=== PATIENT | male | born 1950 | race Hispanic/Latino ===

== ENCOUNTER 2024-01-25 07:24 | Emergency (ER) | payer OTHER ==
[2024-01-25] MEDS ORDERED: NA CHLORIDE 0.9% 500 ML ONE (07:33)
[2024-01-25] MEDS ORDERED: NOREPINEPHRINE BITARTRATE/D5W 4 MG/250 ML KIT IV ONE (08:01)
[2024-01-25] MEDS ORDERED: PANTOPRAZOLE 40 MG INJ ONE (08:01)
[2024-01-25] MEDS ORDERED: ONDANSETRON 4 MG/2 ML VIAL ONE (08:01)
[2024-01-25 08:02] LABS: Absolute Basophils 0.1 K/uL (0-0.5); Absolute Eosinophils 0.3 K/uL (0-0.5); Absolute Lymphocytes (CBC) 3.2 K/uL (0.7-4.9); Absolute Monocytes 0.5 K/uL (0.1-1.3); Absolute Neutrophil 7.1 K/uL (1.8-8.0); Basophils % 0.9 % (0-1.3); Eosinophils % 2.5 % (0-4.4); Hematocrit 17.3 % (39.6-49.0); Lymphocytes % 28.4 % (15.3-44.8); MCH 30.3 pg (27.0-35.0); MCHC 31.7 g/dL (32.0-36.0); MCV 95.6 fL (80-100); MPV 7.6 fL (7.6-11.3); Monocytes % 4.3 % (3.3-12.3); Neutrophils % 63.9 % (41.7-73.7); Platelets 323 thou/uL (152-406); RBC Red Blood Cell Count 1.81 M/uL (4.33-5.43); Red Cell Distribution Width 19.1 % (12.1-15.2)
--- NOTE | 2024-01-25 08:03 | ER ---
Nurse's Notes [facility] Name: Carson Boyd Age: 73 yrs Sex: Male : 1950 Arrival Date: 01/25/2024 Time: 07:24 Bed 16 Private MD: Diagnosis: Hypotension, unspecified;GI Bleed/ Gastrointestinal hemorrhage, unspecified;Dependence on renal dialysis-MWF;Vomiting;Weakness Presentation: 01/24 07:39 Chief complaint: EMS states: EMS called for N/V and "possible surgical complications", ph pt was flown to [place] last week for a GI bleed, BP low at 70s/50s, HR 120s, hx of dialysis M,W,F. Coronavirus screen: Vaccine status: Patient reports receiving the 2nd dose of the covid vaccine. Ebola Screen: No symptoms or risks identified at this time. Initial Sepsis Screen: Does the patient meet any 2 criteria? No. Patient's initial sepsis screen is negative. Does the patient have a suspected source of infection? No. Patient's initial sepsis screen is negative. Risk Assessment: Do you want to hurt yourself or someone else? Patient reports no desire to harm self or others. Onset of symptoms was January 25, 2024. 07:39 Acuity: [place] 1 07:39 Method Of Arrival: EMS: [facility] Triage Assessment: 07:30 General: Appears in no apparent distress. Behavior is calm, cooperative. Pain: Complains of pain in abdomen. Neuro: Level of Consciousness is awake, alert, obeys commands, Oriented to person, place, time, situation. Cardiovascular: Capillary refill < 3 seconds in bilateral fingers Patient's skin is warm and dry. Rhythm is sinus tachycardia. Cardiovascular: Dialysis shunt: in the dorsal aspect of left forearm, with palpable thrill, with auscultated bruit, with no erythema, with no edema, no bleeding noted. Cardiovascular: Dialysis shunt: in the right clavicle. Cardiovascular: Edema is 1+ to left midcalf, left ankle, right midcalf and right ankle. Respiratory: Airway is patent Respiratory effort is even, unlabored. GI: Reports nausea, vomiting, Patient currently denies bloody stool. Derm: Skin is pale, Skin temperature is cool. Historical: - Allergies: 10:06 No Known Allergies; ph - PMHx: 10:06 Hypercholesterolemia; Hypertensive disorder; Gout; Dialysis M,W,F; ph - Immunization history:: Adult Immunizations unknown, Adult Immunizations unknown. - Infectious Disease History:: Denies. Denies. - Family history:: not pertinent. - Social history:: Smoking status: Patient denies any tobacco usage or history of. Smoking status: Patient denies any tobacco usage or history of. Screenin:02 [facility] ED Fall Risk Assessment (Adult) History of falling in the last 3 months, ph including since admission No falls in past 3 months (0 pts) Confusion or Disorientation No (0 pts) Intoxicated or Sedated No (0 pts) Impaired Gait Yes (1 pt) Mobility Assist Device Used Yes (1 pt) Altered Elimination No (0 pt) Score/Fall Risk Level 3 or more points = High Risk Oriented to surroundings, Maintained a safe environment, Hourly rounding (assess needs \\T\\ fall precautionary measures) done, Used ambulatory aids as needed (educated on \\T\\ assisted with). Abuse screen: Denies threats or abuse. Denies injuries from another. Nutritional screening: No deficits noted. Tuberculosis screening: No symptoms or risk factors identified. Assessment: 08:00 General: SEE TRIAGE ASSESSMENT. ph 09:00 Reassessment: Patient appears in no apparent distress at this time. Patient and/or ph family updated on plan of care and expected duration. Pain level reassessed. Patient is alert, oriented x 3, equal unlabored respirations, skin warm/dry/pink. 09:50 Reassessment: Life Flight at bedside, pt flown to [facility] w/ PRBCs and FFP ph transfusing. 09:55 Reassessment: Report called to Jones RN at [facility] GI ICU. ph Vital Signs: 07:38 BP 75 / 53; Pulse 114; Resp 18; Temp 97; Pulse Ox 95% on R/A; Weight 93.44 kg; Height 5 ph ft. 11 in. ; 08:21 BP 89 / 50; Pulse 111; Resp 18; Pulse Ox 96% on R/A; ph 08:41 BP 96 / 51; Pulse 101; Resp 23; Pulse Ox 100% on R/A; ph 09:02 BP 109 / 57; Pulse 97; Resp 18; Temp 96.8(TE); Pulse Ox 100% ; ph 09:15 BP 112 / 62; Pulse 100; Resp 22; Temp 97; Pulse Ox 98% on R/A; ph 09:30 BP 77 / 55; Pulse 106; Resp 18; Pulse Ox 100% on R/A; ph 09:45 BP 96 / 52; Pulse 103; Resp 21; Temp 96.6; Pulse Ox 100% on R/A; ph 07:38 Body Mass Index 28.73 (93.44 kg, 180.34 cm) ph Vitals: 08:21 Cardiac Rhythm Assessment Sinus tach. ph ED Course: 07:25 Inserted saline lock: 18 gauge in left EJ, using aseptic technique. ,using aseptic ph technique. per Dr Sutton Blood collected. Flushed with 10 mL NS. 07:28 Patient arrived in ED. ph 07:32 Deon Sutton MD is Attending Physician. emmy 07:37 Irma Patino, RN is Primary Nurse. ph 07:40 Triage completed. ph 08:07 XRAY Chest (1 view) In Process Unspecified. EDMS 08:20 Troponin HS Sent. ph 08:20 Accessed [place] cath. using per hospital protocol. Good blood return. Flushes easily. ph 08:30 Consent for blood and/or blood product transfusion explained by staff, explained by ph physician, signed by patient. 08:30 Patient has correct armband on for positive identification. Provided Education on: ph Estimated time for test results. 08:56 [facility] at capacity, asked about [facility]. bc6 09:05 [facility]. bc6 09:06 Arm band placed on. ph 09:06 initiated transfer with Marco at [facility] transfer [place]. bc6 09:10 spoke with andie at [facility] transfer center to initiate. bc6 09:21 doc to doc with [facility]. bc6 09:30 received acceptance from andie with [facility] for bed 8A 813. bc6 09:47 life flight here. bc6 10:08 No provider procedures requiring assistance completed. Patient transferred, IV remains ph in place. Administered Medications: 08:19 Drug: Norepinephrine IV 0.1 mcg/kg/min IV at calculated rate See Administration ph Instructions; (Standard concentration 4 mg / 250 mL D5W); Recommended max rate 3 mcg/kg/min; Titrate 0.05 mcg/kg/min as often as every 5 minutes to achieve goal (see titration policy); Goal parameter MAP greater than 65 mmHg. {Note: given via Michi cath.} Route: IV; Rate: calculated rate; Site: Other; 09:50 Follow up: Response: No adverse reaction; IV Status: Infusion continued upon transfer ph 08:20 Drug: Pantoprazole IVP 80 mg IVP once Route: IVP; Site: left jugular; ph 10:12 Follow up: Response: No adverse reaction ph 09:32 Not Given (Other Intervention Used): ns 0.9% 500 ml IV at bolus once; to be given as a ph bolus over 30 minutes 09:32 Not Given (Other Intervention Used): ns 0.9% 500 ml 500 ml IV at 75 ml/hr once; to be ph given as a bolus over 30 minutes 09:43 Drug: Phytonadione Sub-Q 10 mg Sub-Q once Route: Sub-Q; Site: left lower abdomen; ap3 10:11 Follow up: Response: No adverse reaction ph 10:11 Not Given (Patient Refused): ondansetron 4 mg IVP once; over 2 minutes ph 10:12 Not Given (pt transferred before receiving from [facility]): pantoprazole8 mg/hr IV at ph 25 ml/hr continuous; (Standard dilution is 80 mg in 250 mL NS) Medication: 08:50 Blood products: PRBCs X 1 unit given. ph 09:25 Blood products: FFP X 1 unit given. ph 10:07 VIS not applicable for this client. ph Outcome: 08:03 ER care complete, transfer ordered by . emmy 10:[address] [facility], ph 10:09 Condition: stable 10:09 Instructed on the need for transfer, 10:12 Patient left the ED. ph Signatures: Dispatcher [employer] EDDeon Chavez MD MD cha Hall, Patricia RN RN ph Carly Dhillon RN RN ap3 Beti Haskins 6 Corrections: (The following items were deleted from the chart) 10:06 09:05 General: SEE TRIAGE ASSESSMENT. ph ph
--- NOTE | 2024-01-25 08:03 | EDPHYS ---
Physician Documentation [facility] Name: Carson Boyd Age: 73 yrs Sex: Male : 1950 Arrival Date: 01/25/2024 Time: 07:24 Bed 16 Private MD: ED Physician Deon Sutton HPI: 01/24 07:55 This 73 yrs old Male presents to ER via EMS with complaints of emmy Nausea/Vomiting, Blood Pressure Problem. 07:55 The patient presents to the emergency department with nausea, vomiting, that is emmy intermittent. Onset: The symptoms/episode began/occurred 1 day(s) ago. Possible causes: gi bleed. Historical: - Allergies: 10:06 No Known Allergies; ph - PMHx: 10:06 Hypercholesterolemia; Hypertensive disorder; Gout; Dialysis M,W,F; ph - Immunization history:: Adult Immunizations unknown, Adult Immunizations unknown. - Infectious Disease History:: Denies. Denies. - Family history:: not pertinent. - Social history:: Smoking status: Patient denies any tobacco usage or history of. Smoking status: Patient denies any tobacco usage or history of. ROS: 07:55 Constitutional: Negative for fever, chills, and weight loss, Eyes: Negative for injury, emmy pain, redness, and discharge, ENT: Negative for injury, pain, and discharge, Neck: Negative for injury, pain, and swelling, Respiratory: Negative for shortness of breath, cough, wheezing, and pleuritic chest pain, Back: Negative for injury and pain, : Negative for injury, bleeding, discharge, and swelling, MS/Extremity: Negative for injury and deformity, Neuro: Negative for headache, weakness, numbness, tingling, and seizure, Psych: Negative for depression, anxiety, suicide ideation, homicidal ideation, and hallucinations, Allergy/Immunology: Negative for hives, rash, and allergies, Endocrine: Negative for neck swelling, polydipsia, polyuria, polyphagia, and marked weight changes, Hematologic/Lymphatic: Negative for swollen nodes, abnormal bleeding, and unusual bruising, 07:55 Cardiovascular: Positive for palpitations, 07:55 Respiratory: Positive for cough, shortness of breath, at rest. 07:55 Abdomen/GI: Positive for nausea and vomiting, abdominal cramps, black/tarry stool, 07:55 Skin: Positive for pallor, Exam: 07:55 Head/Face: Normocephalic, atraumatic. Eyes: Pupils equal round and reactive to light, emmy extra-ocular motions intact. Lids and lashes normal. Conjunctiva and sclera are non-icteric and not injected. Cornea within normal limits. Periorbital areas with no swelling, redness, or edema. ENT: Nares patent. No nasal discharge, no septal abnormalities noted. Tympanic membranes are normal and external auditory canals are clear. Oropharynx with no redness, swelling, or masses, exudates, or evidence of obstruction, uvula midline. Mucous membranes moist. Neck: Trachea midline, no thyromegaly or masses palpated, and no cervical lymphadenopathy. Supple, full range of motion without nuchal rigidity, or vertebral point tenderness. No Meningismus. Chest/axilla: Normal chest wall appearance and motion. Nontender with no deformity. No lesions are appreciated. Respiratory: Lungs have equal breath sounds bilaterally, clear to auscultation and percussion. No rales, rhonchi or wheezes noted. No increased work of breathing, no retractions or nasal flaring. Back: No spinal tenderness. No costovertebral tenderness. Full range of motion. Male : Normal genitalia with no discharge or lesions. Skin: Warm, dry with normal turgor. Normal color with no rashes, no lesions, and no evidence of cellulitis. MS/ Extremity: Pulses equal, no cyanosis. Neurovascular intact. Full, normal range of motion., bilateral aka Psych: Awake, alert, with orientation to person, place and time. Behavior, mood, and affect are within normal limits. 07:55 Constitutional: The patient appears in obvious distress, mildly distressed, 07:55 Cardiovascular: Rate: tachycardic, actual rate is 118 bpm, Rhythm: regular, Pulses: Pulses are 3+ in bilateral radial, brachial, femoral, popliteal, posterior tibial and and dorsalis pedis arteries.. Heart sounds: normal, Edema: 1+ edema to level of left midcalf and right midcalf, JVD: is noted bilaterally, to 2 cm, 07:55 ECG was reviewed by the Attending Physician. Vital Signs: 07:38 BP 75 / 53; Pulse 114; Resp 18; Temp 97; Pulse Ox 95% on R/A; Weight 93.44 kg; Height 5 ph ft. 11 in. ; 08:21 BP 89 / 50; Pulse 111; Resp 18; Pulse Ox 96% on R/A; ph 08:41 BP 96 / 51; Pulse 101; Resp 23; Pulse Ox 100% on R/A; ph 09:02 BP 109 / 57; Pulse 97; Resp 18; Temp 96.8(TE); Pulse Ox 100% ; ph 09:15 BP 112 / 62; Pulse 100; Resp 22; Temp 97; Pulse Ox 98% on R/A; ph 09:30 BP 77 / 55; Pulse 106; Resp 18; Pulse Ox 100% on R/A; ph 09:45 BP 96 / 52; Pulse 103; Resp 21; Temp 96.6; Pulse Ox 100% on R/A; ph 07:38 Body Mass Index 28.73 (93.44 kg, 180.34 cm) ph Procedures: 07:59 Peripheral line: by aseptic technique a peripheral line was placed in the left external emmy jugular vein. MDM: 07:33 Medical Screening Exam initiated emmy 08:00 Differential diagnosis: Nonspecific abd pain, gastritis, pancreatitis, viral emmy gastroenteritis, gastroenteritis, gastritis, hemorrhagic shock, varices. Differential Diagnosis altered mental status, flu. Data reviewed: vital signs, nurses notes, lab test result(s), EKG, radiologic studies, plain films. Consideration of Admission/Observation Escalation of care including admission/observation considered. I considered the following discharge prescriptions or medication management in the emergency department Medications were administered in the Emergency Department. See MAR. Independent interpretation of the following test(s) in the Emergency Department EKG: See my EKG interpretation above. Test considered but Not performed: CT: no ct abd pel. Historians other than the Patient: EMS: ems well informed. Care significantly affected by the following chronic conditions: Diabetes, Hypertension, Obesity, upper gi bleed. Counseling: I had a detailed discussion with the patient and/or guardian regarding the historical points, exam findings, and any diagnostic results supporting the discharge/admit diagnosis, lab results, radiology results, the need to transfer to another facility, for higher level of care, [facility] does not immediately have the required specialist. 01/24 07:37 Order name: Type And Screen [facility] 01/24 07:37 Order name: Basic Metabolic Panel; Complete Time: 08:45 [facility] 01/24 07:37 Order name: CBC with Diff; Complete Time: 08:45 [facility] 01/24 07:37 Order name: LFT's; Complete Time: 08:45 [facility] 01/24 07:37 Order name: Magnesium; Complete Time: 08:45 [facility] 01/24 07:37 Order name: NT PRO-BNP; Complete Time: 08:45 [facility] 01/24 07:37 Order name: PT-INR; Complete Time: 08:06 [facility] 01/24 07:37 Order name: Troponin HS; Complete Time: 08:45 [facility] 01/24 07:37 Order name: Lipase; Complete Time: 08:45 [facility] 01/24 08:00 Order name: Packed RBC Leukored [facility] 01/24 08:14 Order name: Fresh Frozen Plasma [facility] 01/24 08:54 Order name: ABO/RH no charge; Complete Time: 09:19 [facility] 01/24 07:37 Order name: XRAY Chest (1 view) [facility] 01/24 07:37 Order name: Cardiac monitoring; Complete Time: 08:20 [facility] 01/24 07:37 Order name: EKG - Nurse/Tech; Complete Time: 08:20 [facility] 01/24 07:37 Order name: IV Saline Lock; Complete Time: 08:20 [facility] 01/24 07:37 Order name: Labs collected and sent; Complete Time: 08:20 [facility] 01/24 07:37 Order name: O2 Per Protocol; Complete Time: 08:20 [facility] 01/24 07:37 Order name: O2 Sat Monitoring; Complete Time: 08:20 [facility] 01/24 07:37 Order name: Misc. Order: access michi; Complete Time: 08:20 [facility] 01/24 07:37 Order name: Misc. Order: ej; Complete Time: 08:20 [facility] 01/24 07:37 Order name: Transfuse; Complete Time: 09:05 [facility] 01/24 08:45 Order name: NPO; Complete Time: 09:05 [facility] EC:55 Rate is 112 beats/min. Rhythm is regular. QRS [place] is Normal. DC interval is normal. emmy QRS interval is normal. QT interval is normal. No Q waves. T waves are Normal. ST Segment is depressed in leads I, II, III, aVL, aVF, V4, V5, V6. Clinical impression: NSR w/ Non-specific ST/T Changes. Interpreted by me. Reviewed by me. Administered Medications: 08:19 Drug: Norepinephrine IV 0.1 mcg/kg/min IV at calculated rate See Administration ph Instructions; (Standard concentration 4 mg / 250 mL D5W); Recommended max rate 3 mcg/kg/min; Titrate 0.05 mcg/kg/min as often as every 5 minutes to achieve goal (see titration policy); Goal parameter MAP greater than 65 mmHg. {Note: given via Michi cath.} Route: IV; Rate: calculated rate; Site: Other; 09:50 Follow up: Response: No adverse reaction; IV Status: Infusion continued upon transfer ph 08:20 Drug: Pantoprazole IVP 80 mg IVP once Route: IVP; Site: left jugular; ph 10:12 Follow up: Response: No adverse reaction ph 09:32 Not Given (Other Intervention Used): ns 0.9% 500 ml IV at bolus once; to be given as a ph bolus over 30 minutes 09:32 Not Given (Other Intervention Used): ns 0.9% 500 ml 500 ml IV at 75 ml/hr once; to be ph given as a bolus over 30 minutes 09:43 Drug: Phytonadione Sub-Q 10 mg Sub-Q once Route: Sub-Q; Site: left lower abdomen; ap3 10:11 Follow up: Response: No adverse reaction ph 10:11 Not Given (Patient Refused): ondansetron 4 mg IVP once; over 2 minutes ph 10:12 Not Given (pt transferred before receiving from [facility]): pantoprazole8 mg/hr IV at ph 25 ml/hr continuous; (Standard dilution is 80 mg in 250 mL NS) Disposition Summary: 01/25/24 08:03 Transfer Ordered Notes: Transfer Location: [facility] emmy Reason: Higher level of care memy Condition: Serious emmy Problem: an ongoing problem emmy Symptoms: have worsened emmy Accepting Physician: to [facility](01/25/24 10:12) ph Diagnosis - Hypotension, unspecified emmy - GI Bleed/ Gastrointestinal hemorrhage, unspecified emmy - Dependence on renal dialysis - MWF emmy - Vomiting emmy - Weakness emmy Forms: - Medication Reconciliation Form emmy - SBAR form emmy Signatures: Dispatcher [employer] Deon Bowie MD MD cha Hall, Patricia, RN RN ph Prokisch, Carly, RN RN ap3 Corrections: (The following items were deleted from the chart) 07:37 07:37 BASIC METABOLIC PANEL+C.LAB.BRZ ordered. EDMS EDMS 07:37 07:37 CBC+H.LAB.BRZ ordered. EDMS EDMS 07:37 07:37 HEPATIC FUNCTION+C.LAB.BRZ ordered. EDMS EDMS 07:37 07:37 MAGNESIUM+C.LAB.BRZ ordered. EDMS EDMS 07:37 07:37 PROBNP+C.LAB.BRZ ordered. EDMS EDMS 07:37 07:37 PROTIME (+INR)+COAG.LAB.BRZ ordered. EDMS EDMS 07:37 07:37 Troponin High Sensitivity+C.LAB.BRZ ordered. EDMS EDMS 07:37 07:37 LIPASE+C.LAB.BRZ ordered. EDMS EDMS 07:37 07:37 TYPE AND SCREEN+BB.LAB.BRZ ordered. EDMS EDMS 07:37 07:37 Chest Single View+RAD.RAD.BRZ ordered. EDMS EDMS 10:12 08:03 [place] [facility]
[2024-01-25 08:05] LABS: Protime INR 1.17
[2024-01-25] MEDS ORDERED: NA CHLORIDE 0.9% 250 ML ONE (08:05)
[2024-01-25 08:09] LABS: Hemoglobin 5.5 g/dL (13.6-17.9)
[2024-01-25 08:24] LABS: Albumin 1.7 g/dL (3.4-5.0); Albumin/Globulin Ratio 0.6 (1.1-1.8); Alkaline Phosphatase 57 U/L (45-117); Anion Gap 11.3 mEq/L (5.0-15.0); BUN Blood Urea Nitrogen 20 mg/dL (7-18); Bicarbonate 24 mEq/L (21-32); Bilirubin Total 0.3 mg/dL (0.2-1.0); Globulin 2.9 g/dL (2.3-3.5); Glomerular Filtration Rate 14 ml/min (=/>90); Glucose Level 124 mg/dL (74-106); Lipase 20 U/L (13-75); Magnesium 1.8 mg/dL (1.6-2.4); NT PRO-BNP 802 pg/mL (<125); Potassium 3.3 mEq/L (3.5-5.1); Protein, Total 4.6 g/dL (6.4-8.2); Sodium Level 142 mEq/L (136-145); Troponin High Sensitivity 13.5 pg/mL (<58.9)
[2024-01-25 08:28] LABS: ALT/SGPT < 14 U/L (16-61); AST/SGOT < 10 U/L (15-37); Bilirubin Direct < 0.2 mg/dL (0-0.2); Bilirubin Indirect, Calculated 0.1 mg/dL (0.2-0.8)
--- NOTE | 2024-01-25 09:21 | RAD REPORT ---
EXAMINATION: ONE VIEW CHEST XR CLINICAL INDICATION: Male, 73 years old.,SOB TECHNIQUE: Frontal chest projection is submitted. Examination is limited by patient positioning and t echnique. COMPARISON: 07/25/2012 FINDINGS: A right IJ dual-lumen dialysis catheter has been placed, with the distal tip at the level of the dist al SVC. The staggered ends are somewhat spaced, with the distance of 1.2 cm. The lungs are well inflated and clear. No pneumothorax or sizable effusion. The heart is mildly enlarged, stable. Media stinal contours are unremarkable. IMPRESSION: No acute intrathoracic abnormalities. Right IJ dialysis catheter as above.
[2024-01-25] MEDS ORDERED: VITAMIN K (ADULT) 10 MG/ML ONE (09:35)
[2024-01-25 10:26] VITALS: O2SAT 100
[2024-01-25 10:27] VITALS: BP 96/52; TEMP 96.6
--- NOTE | 2024-01-26 15:47 | EKG ---
Test Date: 2024-01-25 Test Time: 07:49:07 Export Clerk: PH MEASUREMENT RESULTS: Intervals: Rate: 112 [place]: 194 QRSD: 82 QT: 338 QTc: 461 [place]: P: 8 [place]: 194 QRS: 34 T: -34 INTERPRETIVE STATEMENTS: Sinus tachycardia with premature atrial complexes Septal infarct, age undetermined Abnormal ECG Compared to ECG 07/25/2012 16:01:42 Atrial premature complex(es) now present Myocardial infarct finding now present Sinus bradycardia no longer present First degree AV block no longer present Electronically Signed On 01-26-24 15:46:11 VISUAL MERCHANDISING MANAGER by Lenard Partida
== END 2024-01-25 10:12 | disposition short-term general hospital (02) ==
LOC: ER 07:24
PROC: 05HQ33Z Insertion of Infusion Device into Left External Jugular Vein, Percutaneous Approach (ICD-10-PCS; principal; 2024-01-25)
DX: K92.2 Gastrointestinal hemorrhage, unspecified (principal); I95.9 Hypotension, unspecified; R53.1 Weakness; I10 Essential (primary) hypertension; E78.00 Pure hypercholesterolemia, unspecified; Z99.2 Dependence on renal dialysis
CPT/HCPCS: 96365; 93005; 85025; 80048; 36415; 86900; 83735; 86850; 85610; 86901; 80076; 86920 ×2; 84484; 83690; 83880; 71045; 36430; 96375; 96372; 99285; 96366; 36569; J3430; J2470; J2405; P9016 ×2; P9059 ×2; J7050; J7040